=== PATIENT | female | born 1970 | race Caucasian/White ===

== ENCOUNTER 2017-10-22 16:20 | Emergency (ER) | payer MEDICAID ==
[~2017-10-22] VITALS: Ht 157.5 cm; Wt 82.0 kg
[2017-10-22] MEDS ORDERED: KETOROLAC 30MG/ML VIAL IV STA (17:16)
[2017-10-22 19:00] VITALS: BP 111/76
[2017-10-22] MEDS ORDERED: KETOROLAC 60MG/2ML VIAL IM ONE (19:15)
[2017-10-22 19:31] LABS: BASOPHILS % 0.6 % (0.0-2.0); EOSINOPHILS % 1.2 % (0.0-5.0); HEMATOCRIT. 41.7 % (36.0-48.0); HEMOGLOBIN. 14.5 g/dL (12.0-16.0); LYMPHOCYTES % 10.4 % (20.0-50.0); MEAN CORPUSCULAR HEMOGLOBIN 31.8 pg (28.0-32.0); MEAN CORPUSCULAR VOLUME 91.8 fL (81.0-99.0); MEAN PLATELET VOLUME 7.3 fl (7.4-10.4); MONOCYTES % 5.6 % (2.0-8.0); NEUTROPHILS % 82.2 % (40.0-76.0); PLATELET 257 x1000/uL (130-400); RED BLOOD CELL COUNT 4.54 mill/uL (4.2-5.4); RED CELL DISTRIBUTION WIDTH 13.4 % (11.6-14.6)
[2017-10-22 19:34] LABS: CHLORIDE 108 mEq/L (98-107)
[2017-10-22 20:17] LABS: HCG SCREEN NEGATIVE
== END 2017-10-22 19:34 | disposition home or self-care (01) ==
LOC: ER 17:48
DX: M79.1 Myalgia (principal); I10 Essential (primary) hypertension; V49.88XA Car occupant (driver) (passenger) injured in other specified transport accidents, initial encounter; Y93.89 Activity, other specified; Y92.89 Other specified places as the place of occurrence of the external cause; Y99.8 Other external cause status
CPT/HCPCS: 36415; 71045; 72125; 73552; 74176; 80053; 84703; 85025; 96372; 99285; J1885